=== PATIENT | female | born 1960 | race African-American/Black ===

== ENCOUNTER 2018-09-11 09:51 | Emergency (ER) | payer MEDICAID, OTHER ==
[~2018-09-11] VITALS: Ht 162.6 cm; Wt 50.0 kg
[2018-09-11] MEDS ORDERED: KETOROLAC 60MG/2ML VIAL IM ONE (11:15)
[2018-09-11 12:16] VITALS: BP 120/81
== END 2018-09-11 12:16 | disposition home or self-care (01) ==
LOC: ER 10:28
DX: M54.5 Low back pain (principal); F12.10 Cannabis abuse, uncomplicated; F17.200 Nicotine dependence, unspecified, uncomplicated
CPT/HCPCS: 72100; 96372; 99283; J1885

== ENCOUNTER 2018-11-21 09:36 | Emergency (ER) | payer MEDICAID, OTHER ==
[~2018-11-21] VITALS: Ht 165.1 cm; Wt 50.0 kg
[2018-11-21] MEDS ORDERED: KETOROLAC 60MG/2ML VIAL IM STA (11:56)
[2018-11-21 15:25] VITALS: BP 105/66
== END 2018-11-21 16:28 | disposition home or self-care (01) ==
LOC: ER 09:36
DX: J40 Bronchitis, not specified as acute or chronic (principal); R50.9 Fever, unspecified; M41.9 Scoliosis, unspecified; F12.10 Cannabis abuse, uncomplicated; F17.210 Nicotine dependence, cigarettes, uncomplicated; Z88.0 Allergy status to penicillin
CPT/HCPCS: 71045; 81025; 87804; 93005; 96372; 99284; J1885

== ENCOUNTER 2018-12-12 08:01 | Emergency (ER) | payer OTHER, MEDICAID ==
[~2018-12-12] VITALS: Ht 162.6 cm; Wt 52.0 kg
[2018-12-12 08:52] VITALS: BP 107/84
[2018-12-12] MEDS ORDERED: PREDNISONE 20MG TABLET PO ONE (10:00)
[2018-12-12] MEDS ORDERED: DIPHENHYDRAMINE 50MG CAPSULE PO ONE (10:00)
[2018-12-12] MEDS ORDERED: FAMOTIDINE 20MG TABLET PO ONE (10:00)
[2018-12-12] MEDS ORDERED: ALBUTEROL 6.7GM HFA INHALER ORI ONE (10:15)
== END 2018-12-12 11:28 | disposition home or self-care (01) ==
LOC: ER 08:10
DX: T78.40XA Allergy, unspecified, initial encounter (principal); J45.909 Unspecified asthma, uncomplicated; F12.10 Cannabis abuse, uncomplicated; F17.200 Nicotine dependence, unspecified, uncomplicated; X58.XXXA Exposure to other specified factors, initial encounter
CPT/HCPCS: 99284; J7512; J7611; Q0163

== ENCOUNTER 2023-01-18 08:18 | Emergency (ER) | payer MEDICAID, OTHER ==
[~2023-01-18] VITALS: Ht 165.1 cm; Wt 50.0 kg
[2023-01-18] MEDS ORDERED: IBUPROFEN 800MG TABLET PO ONE (09:00)
[2023-01-18] MEDS ORDERED: IBUPROFEN 400MG TABLET PO NR (10:00)
[2023-01-18] MEDS ORDERED: LIDO700A15 TP (10:21)
[2023-01-18] MEDS ORDERED: NAP5EC PO (10:21)
[2023-01-18 11:21] VITALS: BP 137/64
== END 2023-01-18 11:22 | disposition home or self-care (01) ==
LOC: ER 08:18
DX: S20.213A Contusion of bilateral front wall of thorax, initial encounter (principal); J45.909 Unspecified asthma, uncomplicated; F12.10 Cannabis abuse, uncomplicated; Y04.0XXA Assault by unarmed brawl or fight, initial encounter; Y93.89 Activity, other specified; Y92.89 Other specified places as the place of occurrence of the external cause; Y99.8 Other external cause status
CPT/HCPCS: 71111; 99283